=== PATIENT | female | born 1965 | race Caucasian/White ===

== ENCOUNTER 2016-06-28 13:41 | Emergency (ER) | payer MEDICARE, OTHER ==
[2016-06-28] MEDS ORDERED: Fentanyl 100 MCG/2 ML VIAL ONE (15:11)
[2016-06-28 15:20] LABS: #Basophils 0.1 thou/uL (0.0-0.2); #Eosinphils 0.1 thou/uL (0.0-0.7); #Lymphocytes 3.8 thou/uL (1.20-3.40); #Monocytes 0.7 thou/uL (0.11-0.59); #Neutrophils 7.2 thou/uL (1.40-6.50); %Eosinophils 0.9 % (0.0-10.0); %Lymphocytes 31.9 % (21.0-51.0); %Monocytes 6.2 % (0.0-10.0); %Neutrophils 60.1 % (42.0-75.0); Hemoglobin 16.1 g/dL (12.0-16.0); Mean Corpuscular HGB CONC 35.4 g/dL (32.0-36.0); Mean Corpuscular Hemoglobin 32.5 pg (27.0-31.0); Mean Corpuscular Volume 91.9 fl (81.0-99.0); Mean Platelet Volume 7.8 fL (7.4-10.4); Platelet Count 217 thou/uL (130-400); RBC Distribution Width 11.9 % (11.5-14.5); Red Blood Cell (RBC) Count 4.94 mill/uL (4.20-5.40); White Blood Cell (WBC) Count 11.9 thou/uL (4.8-10.8)
[2016-06-28 15:38] LABS: ALT (SGPT) 21 U/L (0-55); AST (SGOT) 14 U/L (5-34); Albumin 4.1 g/dL (3.5-5.0); Alkaline Phosphatase 87 U/L (40-150); Anion Gap 15 mmol/L (10-20); BUN (Urea Nitrogen) 8 mg/dL (7.0-18.7); Bilirubin, Total 0.5 mg/dL (0.2-1.2); CK (CPK) 106 U/L (29-168); Calc. Creatinine Clearance 0 mL/min (70-130); Calcium 9.4 mg/dL (7.8-10.44); Carbon Dioxide 31 mmol/L (22-29); Chloride 98 mmol/L (98-107); Estimated GFR-MDRD 57; Globulin 3.2 g/dL (2.4-3.5); Lipase 63 U/L (8-78); Protein, Total 7.3 g/dL (6.0-8.3); Sodium 141 mmol/L (136-145)
[2016-06-28 15:39] LABS: CKMB 1.2 ng/mL (0-6.6); Troponin I Less than 0.010 ng/mL (< 0.028)
[2016-06-28 15:42] LABS: Glucose 51 mg/dL (70-105)
[2016-06-28] MEDS ORDERED: Ondansetron HCl/PF 4 MG/2 ML Vial ONE (16:18)
--- NOTE | 2016-06-28 16:46 | ULT ---
ULTRASOUND RIGHT UPPER QUADRANT GALLBLADDER 06/28/16 HISTORY: Evaluate for stone or infection. History of right upper quadrant pain for one week. COMPARISON: Ultrasound gallbladder 10/04/14. FINDINGS: There is underlying increased diffuse hepatic echotexture. Liver measures 17 cm in length. Right kidney measures 10.8 x 4.9 x 5.2 cm without hydronephrosis or calcification. Gallbladder is no rmal. No pericholecystic fluid. The common bile duct measures less than 4 mm, normal. The pancreas i s not well visualized. IMPRESSION: Diffuse hepatic steatosis. No cholelithiasis or evidence of cholecystitis. POS: [facility]
== END 2016-06-28 17:46 | disposition home or self-care (01) ==
LOC: NAV ERS 13:41
DX: R10.13 Epigastric pain (principal); E11.9 Type 2 diabetes mellitus without complications; I10 Essential (primary) hypertension; J44.9 Chronic obstructive pulmonary disease, unspecified; F17.210 Nicotine dependence, cigarettes, uncomplicated; Z79.84 Long term (current) use of oral hypoglycemic drugs; Z79.899 Other long term (current) drug therapy
CPT/HCPCS: 36416; 76705; 80053; 82553; 83690; 84484; 85025; J2405; J3010

== ENCOUNTER 2016-08-09 11:41 | Outpatient (CLI) | payer OTHER ==
[2016-08-09 13:00] LABS: Anion Gap 17 mmol/L (10-20); BUN (Urea Nitrogen) 10 mg/dL (7.0-18.7); Calc. Creatinine Clearance 0 mL/min (70-130); Calcium 9.8 mg/dL (7.8-10.44); Carbon Dioxide 33 mmol/L (22-29); Chloride 96 mmol/L (98-107); Estimated GFR-MDRD 54; Glucose 223 mg/dL (70-105); Potassium 3.5 mmol/L (3.5-5.1); Sodium 142 mmol/L (136-145)
== END 2016-08-09 11:42 ==
LOC: NAVSJIPCSP 11:41
PROVIDERS: ATTEND Internal Medicine
DX: I10 Essential (primary) hypertension (principal)
CPT/HCPCS: 36415; 80048

== ENCOUNTER 2017-03-31 19:47 | Emergency (ER) | payer MEDICARE, BC ==
[2017-03-31] MEDS ORDERED: Azithromycin 250 MG TAB ONE (21:12)
[2017-03-31] MEDS ORDERED: predniSONE 20 MG TAB ONE (21:12)
--- NOTE | 2017-03-31 22:48 | RAD ---
CHEST TWO VIEWS: History: Emergency exam. Comparison: 2014 FINDINGS: Lungs are clear. No pneumothorax or effusion. Cardiac silhouette and mediastinal contours are within normal limits. IMPRESSION: No acute intrathoracic abnormality. POS: [facility]
== END 2017-03-31 21:30 | disposition home or self-care (01) ==
LOC: NAV ERS 19:47
DX: J20.9 Acute bronchitis, unspecified (principal); E11.9 Type 2 diabetes mellitus without complications; I10 Essential (primary) hypertension; J44.9 Chronic obstructive pulmonary disease, unspecified; F17.210 Nicotine dependence, cigarettes, uncomplicated; Z79.84 Long term (current) use of oral hypoglycemic drugs; Z79.899 Other long term (current) drug therapy
CPT/HCPCS: 71046; 93005; J7506

== ENCOUNTER 2017-06-26 21:58 | Emergency (ER) | payer BC, MEDICARE ==
[2017-06-26] MEDS ORDERED: Fentanyl 100 MCG/2 ML VIAL ONE (23:06)
--- NOTE | 2017-06-27 00:26 | CT ---
LUMBAR SPINE MRI WITHOUT IV CONTRAST: 06/26/17 HISTORY: 52-year-old female with right hip pain and back pain. No evidence for acute fracture or dislocation. The L1-L2, L2-L3, and L3-L4 discs demonstrate some min imal ligament and facet hypertrophic changes without significant canal or foraminal stenosis. At L4-L5, there is some diffuse disc bulging with moderate central canal and lateral recess and drew inal stenosis. Mild disc bulging at L5-S1 without significant central canal or lateral recess stenosi s. Mild bilateral foraminal stenosis. IMPRESSION: Disc protrusion changes at L4-L5 with some associated canal, lateral recess, and foraminal stenosis. Mild lateral recess stenosis at L5-S1. No fracture or dislocation. Consider nonemergent followup MRI study for further assessment. POS: [facility]
== END 2017-06-26 23:50 | disposition home or self-care (01) ==
LOC: NAV ERS 21:58
DX: M51.16 Intervertebral disc disorders with radiculopathy, lumbar region (principal); E11.9 Type 2 diabetes mellitus without complications; I10 Essential (primary) hypertension; J44.9 Chronic obstructive pulmonary disease, unspecified; F17.210 Nicotine dependence, cigarettes, uncomplicated; Z79.899 Other long term (current) drug therapy
CPT/HCPCS: 72131; 96372; J3010

== ENCOUNTER 2018-06-26 16:54 | Outpatient (CLI) | payer BC, MEDICARE ==
--- NOTE | 2018-06-26 17:21 | RAD ---
F4 views left knee: 06/26/2018 COMPARISON: None HISTORY: Osteoarthritis FINDINGS: Mild/moderate medial and lateral compartment narrowing with medial osteophyte formation and lateral compartment chondrocalcinosis. No significant knee joint effusion. No displaced fracture or dislocation. Patellofemoral joint space narrowing with posterior patellar osteophyte formation noted. Enthesophyte formation noted at the insertion of the quadriceps tendon. IMPRESSION: Degenerative joint disease.
== END 2018-06-26 16:55 | disposition home or self-care (01) ==
LOC: NAV RAD 16:54
PROVIDERS: ATTEND Internal Medicine
DX: M17.12 Unilateral primary osteoarthritis, left knee (principal)

== ENCOUNTER 2018-06-28 14:23 | Emergency (ER) | payer BC, MEDICARE ==
[2018-06-28] MEDS ORDERED: Ondansetron ODT 4 MG TAB ONE (15:09)
== END 2018-06-28 16:10 | disposition home or self-care (01) ==
LOC: NAV ERS 14:23
DX: M17.12 Unilateral primary osteoarthritis, left knee (principal); I10 Essential (primary) hypertension; E11.9 Type 2 diabetes mellitus without complications; J44.9 Chronic obstructive pulmonary disease, unspecified; F17.210 Nicotine dependence, cigarettes, uncomplicated; Z79.899 Other long term (current) drug therapy
CPT/HCPCS: 96372; J1170; Q0162

== ENCOUNTER 2018-07-01 12:56 | Emergency (ER) | payer BC, MEDICARE ==
[2018-07-01] MEDS ORDERED: Ketorolac Tromethamine 60 MG/2 ML VIAL ONE (13:41)
[2018-07-01] MEDS ORDERED: traMADol HCl 50 MG TAB ONE (13:41)
[2018-07-01] MEDS ORDERED: Ketorolac Tromethamine 30 MG/ML VIAL IM SCH (13:45)
[2018-07-01] MEDS ORDERED: traMADol HCl 50 MG TAB PO SCH (13:45)
== END 2018-07-01 14:00 | disposition home or self-care (01) ==
LOC: NAV ERS 12:56
DX: M17.12 Unilateral primary osteoarthritis, left knee (principal); E11.9 Type 2 diabetes mellitus without complications; I10 Essential (primary) hypertension; J44.9 Chronic obstructive pulmonary disease, unspecified; F17.210 Nicotine dependence, cigarettes, uncomplicated; Z79.899 Other long term (current) drug therapy
CPT/HCPCS: 96372; J1885

== ENCOUNTER 2018-08-27 22:17 | Emergency (ER) | payer BC, MEDICARE ==
[~2018-08-27 22:17] MED LIST: Iopamidol 370 76% 100 ML VIAL ONE
[2018-08-27] MEDS ORDERED: Fentanyl 100 MCG/2 ML VIAL ONE (22:42)
[2018-08-27 22:43] LABS: #Basophils 0.1 thou/uL (0.0-0.2); #Eosinphils 0.2 thou/uL (0.0-0.7); #Lymphocytes 3.2 thou/uL (1.20-3.40); #Monocytes 0.5 thou/uL (0.11-0.59); #Neutrophils 5.9 thou/uL (1.40-6.50); %Basophils 0.7 % (0.0-1.0); %Eosinophils 1.9 % (0.0-10.0); %Lymphocytes 32.3 % (21.0-51.0); %Monocytes 4.7 % (0.0-10.0); %Neutrophils 60.5 % (42.0-75.0); Hemoglobin 14.8 g/dL (12.0-16.0); Mean Corpuscular HGB CONC 32.6 g/dL (32.0-36.0); Mean Corpuscular Hemoglobin 31.1 pg (27.0-31.0); Mean Corpuscular Volume 95.6 fL (78.0-98.0); Mean Platelet Volume 8.3 fL (7.4-10.4); Platelet Count 213 thou/uL (130-400); RBC Distribution Width 12.5 % (11.5-14.5); Red Blood Cell (RBC) Count 4.76 mill/uL (4.20-5.40); White Blood Cell (WBC) Count 9.8 thou/uL (4.8-10.8)
[2018-08-27 22:57] LABS: ALT (SGPT) 22 U/L (8-55); AST (SGOT) 22 U/L (5-34); Albumin 4.4 g/dL (3.5-5.0); Alkaline Phosphatase 91 U/L (40-150); Anion Gap 17 mmol/L (10-20); BUN (Urea Nitrogen) 9 mg/dL (9.8-20.1); Bilirubin, Total 0.3 mg/dL (0.2-1.2); Calc. Creatinine Clearance 0 mL/min (70-130); Calcium 9.8 mg/dL (7.8-10.44); Carbon Dioxide 25 mmol/L (22-29); Chloride 103 mmol/L (98-107); Estimated GFR-MDRD 60; Globulin 3.1 g/dL (2.4-3.5); Glucose 135 mg/dL (70-105); Potassium 3.4 mmol/L (3.5-5.1); Protein, Total 7.5 g/dL (6.0-8.3); Sodium 142 mmol/L (136-145)
--- NOTE | 2018-08-28 00:07 | CT ---
EXAM: CT angiogram of the chest, abdomen, and pelvis with IV contrast and 3-D reconstructions: HISTORY: Chest and back pain. Patient states pain feels like a knife is between shoulder blades. Radiation of pain to jaw and right side of back. COMPARISON: CTA chest on 03/15/2016. FINDINGS: CTA THORAX: Thoracic aorta: Normal in caliber without evidence of an aortic dissection. Pulmonary arteries: No filling defects are seen in the pulmonary arteries to suggest a pulmonary embo len. Lungs: There is dependent atelectasis bilaterally. The lungs are otherwise clear without pulmonary no dule, mass, or pleural effusion. Lymph nodes: No lymphadenopathy. Thyroid gland: There is a isodense nodule seen within the left lobe of the thyroid gland incompletely imaged with a small hypodense nodule seen near the thyroid isthmus the left lobe of thyroid gland measuring 5 mm. Mediastinal structures otherwise have a normal appearance. Chest wall: No abnormalities CTA ABDOMEN AND PELVIS: Vessels: There are mild atherosclerotic calcifications and plaque seen in the abdominal aorta and inv olving the iliac arteries. There is no evidence of an aortic dissection. There is mild atherosclerotic irregularity involving the most proximal right common iliac artery with at least mild narrowing present. The iliac and visualized femoral arteries appear patent bilaterally. Single patent bilateral renal arteries are seen. The celiac, superior mesenteric, and inferior mesent rita arteries are patent. Liver: Within normal limits. Gallbladder: Decompressed.\ Pancreas: Within normal limits. Spleen:Within normal limits for arterial phase of imaging. Adrenal glands: Within normal limits. Kidneys: Subcentimeter too small to characterize hypodense lesions noted in each kidney. There is a l obulated appearance of each kidney which may be related to lobulation. Urinary Bladder: The urinary bladder is unremarkable. Reproductive organs: There is evidence of hysterectomy. Bowel: Normal in caliber. The appendix is visualized and normal in caliber. Adenopathy:No lymphadenopathy within the abdomen or pelvis. Peritoneum: No free fluid or fluid collection is seen. No free intraperitoneal gas is identified. Abdominal wall: There is a fat-containing umbilical hernia present. Osseous structures: Mild degenerative changes are seen in the spine. Mild osteoarthritis is seen invo lving the bilateral hips. IMPRESSION: 1. Mild atherosclerotic plaque within the abdominal aorta and involving the iliac arteries. However, the thoracic and abdominal aorta are normal in caliber without evidence of an aortic dissection. 2. No CT evidence of a pulmonary embolus. 3. Left thyroid nodules. Nonemergent thyroid ultrasound is recommended. 4. Additional findings as described above.
[2018-08-28] MEDS ORDERED: Nitroglycerin 2% Ointment 1 INCH/1 GM Packet ONE (00:24)
[2018-08-28] MEDS ORDERED: Aspirin Chewable 81 MG TAB ONE (00:24)
[2018-08-28] MEDS ORDERED: HYDROcodone/Acetaminophen 10/325 mg Tablet ONE (00:24)
[2018-08-28] MEDS ORDERED: Ondansetron PF 4 MG/2 ML Vial ONE (00:39)
== END 2018-08-28 00:58 | disposition short-term general hospital (02) ==
LOC: NAV ERS 22:17
DX: R07.9 Chest pain, unspecified (principal); G89.29 Other chronic pain; M54.5 Low back pain; I10 Essential (primary) hypertension; E11.9 Type 2 diabetes mellitus without complications; J44.9 Chronic obstructive pulmonary disease, unspecified; F17.210 Nicotine dependence, cigarettes, uncomplicated; Z79.899 Other long term (current) drug therapy
CPT/HCPCS: 71275; 80053; 84484; 85025; 93005; 96374; 96375; J2405; J3010; Q9967

== ENCOUNTER 2019-08-01 12:06 | Emergency (ER) | payer BC, MEDICARE ==
--- NOTE | 2019-08-01 13:13 | RAD ---
EXAM: XR Foot Lt 3 View STANDARD PROVIDED CLINICAL HISTORY: Soft tissue swelling status post stepping on a thorn COMPARISON: None FINDINGS: There is focal soft tissue swelling at the lateral aspect of the proximal forefoot, without focal rad iopaque foreign body seen in this region. Multiple punctate radiodensities overlie the plantar soft tissues of the foot from the calcaneus through the forefoot on the lateral view. Plantar and posterio r calcaneal enthesophyte formation is noted. No evidence for fracture or other acute osseous abnormality. Alignment appears anatomic. IMPRESSION: No evidence for soft tissue foreign body in the region of focal swelling. No evidence for an acute os seous abnormality.
== END 2019-08-01 13:25 | disposition home or self-care (01) ==
LOC: NAV ERS 12:06
DX: S91.332A Puncture wound without foreign body, left foot, initial encounter (principal); M67.472 Ganglion, left ankle and foot; E11.9 Type 2 diabetes mellitus without complications; I10 Essential (primary) hypertension; J44.9 Chronic obstructive pulmonary disease, unspecified; F17.210 Nicotine dependence, cigarettes, uncomplicated; Z79.899 Other long term (current) drug therapy; W60.XXXA Contact with nonvenomous plant thorns and spines and sharp leaves, initial encounter

== ENCOUNTER 2019-10-19 15:28 | Emergency (ER) | payer MEDICARE ==
[2019-10-19] MEDS ORDERED: Acetaminophen 500 MG TAB ONE (15:54)
== END 2019-10-19 16:34 | disposition home or self-care (01) ==
LOC: NAV ERS 15:28
DX: S80.12XA Contusion of left lower leg, initial encounter (principal); S90.32XA Contusion of left foot, initial encounter; Z71.6 Tobacco abuse counseling; E11.9 Type 2 diabetes mellitus without complications; F17.210 Nicotine dependence, cigarettes, uncomplicated; W20.8XXA Other cause of strike by thrown, projected or falling object, initial encounter
CPT/HCPCS: 99406

== ENCOUNTER 2021-10-28 12:20 | Emergency (ER) | payer MEDICARE ==
[2021-10-28] MEDS ORDERED: Acetaminophen 500 MG TAB ONE (12:45)
[2021-10-28] MEDS ORDERED: Ketorolac Tromethamine 30 MG/ML VIAL ONE (12:45)
[2021-10-28] MEDS ORDERED: Sodium Chloride 0.9% 1,000 ML ONE (12:45)
[2021-10-28] MEDS ORDERED: Ondansetron PF 4 MG/2 ML Vial ONE ×2 (12:45→14:59)
[2021-10-28 12:52] LABS: #Lymphocytes 0.9 thou/uL (1.20-3.40); #Monocytes 0.4 thou/uL (0.11-0.59); #Neutrophils 6.1 thou/uL (1.40-6.50); %Basophils 0.6 % (0.0-1.0); %Eosinophils 0.4 % (0.0-10.0); %Lymphocytes 11.6 % (21.0-51.0); %Neutrophils 81.4 % (42.0-75.0); Hemoglobin 9.9 g/dL (12.0-16.0); Mean Corpuscular HGB CONC 32.3 g/dL (32.0-36.0); Mean Corpuscular Hemoglobin 30.5 pg (27.0-31.0); Mean Corpuscular Volume 94.3 fL (78.0-98.0); Mean Platelet Volume 9.6 fL (7.4-10.4); Platelet Count 171 thou/uL (130-400); Red Blood Cell (RBC) Count 3.24 mill/uL (4.20-5.40); White Blood Cell (WBC) Count 7.5 thou/uL (4.8-10.8)
[2021-10-28 13:07] LABS: ALT (SGPT) 21 U/L (8-55); AST (SGOT) 71 U/L (5-34); Albumin 3.2 g/dL (3.5-5.0); Alkaline Phosphatase 95 U/L (40-110); Anion Gap 24 mmol/L (10-20); BUN (Urea Nitrogen) 29 mg/dL (9.8-20.1); Bilirubin, Total 1.2 mg/dL (0.2-1.2); CK (CPK) 819 U/L (29-168); Calc. Creatinine Clearance 0 mL/min (70-130); Carbon Dioxide 27 mmol/L (22-29); Chloride 86 mmol/L (98-107); Estimated GFR 21; Globulin 3.5 g/dL (2.4-3.5); Glucose 151 mg/dL (70-105); Protein, Total 6.7 g/dL (6.0-8.3); Sodium 135 mmol/L (136-145)
[2021-10-28 13:09] LABS: Potassium 2.3 mmol/L (3.5-5.1)
[2021-10-28] MEDS ORDERED: Potassium Chloride 20 MEQ TAB ONE ×2 (13:26→16:15)
[2021-10-28 13:52] LABS: SARS-CoV-2 NAA Rapid Test Not Detected (NotDetected)
[2021-10-28 15:18] LABS: Bilirubin Negative (Negative); Blood, Urine Small (Negative); Clarity Cloudy (Clear); Glucose, Urine (Dipstick) Negative (Negative); Ketone, Urine Negative (Negative); Leukocyte Small (Negative); Nitrite Negative (Negative); Protein, Urine (Dipstick) 30 mg/dL (Neg-Trace); Specific Gravity, Urine 1.015 (1.005-1.030); pH, Urine 5.5 (5.0-9.0)
[2021-10-28 15:19] LABS: Bacteria/HPF 3+ HPF (None Seen); WBC/HPF Greater Than 50 HPF (0-3)
[2021-10-28] MEDS ORDERED: Cefepime 2 GM VIAL ONE (15:37)
[2021-10-28] MEDS ORDERED: Sodium Chloride 0.9% 100 ML ONE (15:38)
[2021-10-28 15:42] LABS: Lactic Acid 1.8 mmol/L (0.5-2.2)
[2021-10-28 15:45] LABS: Anion Gap 17 mmol/L (10-20)
[2021-10-28 15:55] LABS: BUN (Urea Nitrogen) 26 mg/dL (9.8-20.1); Calc. Creatinine Clearance 0 mL/min (70-130); Calcium 5.7 mg/dL (7.8-10.44); Carbon Dioxide 24 mmol/L (22-29); Chloride 94 mmol/L (98-107); Estimated GFR 24; Glucose 107 mg/dL (70-105); Potassium 2.1 mmol/L (3.5-5.1); Sodium 133 mmol/L (136-145)
== END 2021-10-28 16:50 | disposition short-term general hospital (02) ==
LOC: NAV ERS 12:20
DX: A41.9 Sepsis, unspecified organism (principal); K52.9 Noninfective gastroenteritis and colitis, unspecified; E87.6 Hypokalemia; N28.9 Disorder of kidney and ureter, unspecified; N39.0 Urinary tract infection, site not specified; Z20.822 Contact with and (suspected) exposure to COVID-19; E11.9 Type 2 diabetes mellitus without complications; I10 Essential (primary) hypertension; J44.9 Chronic obstructive pulmonary disease, unspecified; F17.210 Nicotine dependence, cigarettes, uncomplicated
CPT/HCPCS: 36415; 51702; 71045; 80053; 81003; 81015; 82550; 83605; 83880; 84484; 85025; 87040; 87077; 87086; 87186; 87804; 93005; 94760; 96361; 96365; 96375; 96376; J0692; J1885; J2405; J3490; J7050

== ENCOUNTER 2021-11-18 12:40 | Emergency (ER) | payer MEDICARE ==
[2021-11-18] MEDS ORDERED: Sodium Chloride 0.9% 1,000 ML ONE ×2 (13:07→13:53)
[2021-11-18] MEDS ORDERED: Ondansetron PF 4 MG/2 ML Vial ONE (13:12)
[2021-11-18 13:25] LABS: #Basophils 0.1 thou/uL (0.0-0.2); #Eosinphils 0.1 thou/uL (0.0-0.7); #Lymphocytes 1.9 thou/uL (1.20-3.40); #Monocytes 0.4 thou/uL (0.11-0.59); #Neutrophils 5.4 thou/uL (1.40-6.50); %Basophils 0.8 % (0.0-1.0); %Eosinophils 1.1 % (0.0-10.0); %Monocytes 5.1 % (0.0-10.0); Hemoglobin 10.4 g/dL (12.0-16.0); Mean Corpuscular HGB CONC 31.9 g/dL (32.0-36.0); Mean Corpuscular Hemoglobin 31.8 pg (27.0-31.0); Mean Corpuscular Volume 99.6 fL (78.0-98.0); Mean Platelet Volume 6.9 fL (7.4-10.4); Platelet Count 232 thou/uL (130-400); RBC Distribution Width 16.5 % (11.5-14.5); Red Blood Cell (RBC) Count 3.28 mill/uL (4.20-5.40); White Blood Cell (WBC) Count 7.9 thou/uL (4.8-10.8)
[2021-11-18 13:30] LABS: Lactic Acid 1.6 mmol/L (0.5-2.2)
[2021-11-18 13:39] LABS: ALT (SGPT) 25 U/L (8-55); AST (SGOT) 46 U/L (5-34); Albumin 3.5 g/dL (3.5-5.0); Alkaline Phosphatase 130 U/L (40-110); Anion Gap 20 mmol/L (10-20); BUN (Urea Nitrogen) 11 mg/dL (9.8-20.1); Bilirubin, Total 0.8 mg/dL (0.2-1.2); Calc. Creatinine Clearance 0 mL/min (70-130); Calcium 7.8 mg/dL (7.8-10.44); Carbon Dioxide 21 mmol/L (22-29); Chloride 102 mmol/L (98-107); Estimated GFR 63; Globulin 3.1 g/dL (2.4-3.5); Glucose 105 mg/dL (70-105); Lipase 27 U/L (8-78); Potassium 3.3 mmol/L (3.5-5.1); Protein, Total 6.6 g/dL (6.0-8.3); Sodium 140 mmol/L (136-145)
[2021-11-18 13:41] LABS: Magnesium 0.8 mg/dL (1.6-2.6)
[2021-11-18 13:52] LABS: INR-International Normal Ratio 1.1; Prothrombin Time 14.1 sec (12.0-14.7)
[2021-11-18 13:53] LABS: PTT 31.5 sec (22.9-36.1)
[2021-11-18] MEDS ORDERED: Aspirin Chewable 81 MG TAB ONE (13:53)
[2021-11-18] MEDS ORDERED: Magnesium 2 GM/50 ML BAG (IN WATER) ONE (13:53)
[2021-11-18] MEDS ORDERED: Piperacillin/Tazobactam 4.5 GM VIAL ONE (13:53)
[2021-11-18] MEDS ORDERED: Sodium Chloride 0.9% 100 ML ONE (13:54)
[2021-11-18 13:55] LABS: D-Dimer Test 2.93 *mcg/mL (0.27-0.43)
[2021-11-18 13:58] LABS: CKMB 2.2 ng/mL (0-6.6)
[2021-11-18] MEDS ORDERED: Sodium Chloride 0.9% 250 ML 500 ML ONE (15:10)
[2021-11-18 16:19] LABS: SARS-CoV-2 NAA Rapid Test Not Detected (NotDetected)
[2021-11-18 16:23] LABS: Troponin I 0.104 ng/mL (< 0.028)
[2021-11-18 16:50] LABS: Bilirubin Negative (Negative); Blood, Urine Negative (Negative); Clarity Clear (Clear); Glucose, Urine (Dipstick) Negative (Negative); Ketone, Urine Negative (Negative); Leukocyte Negative (Negative); Nitrite Negative (Negative); Protein, Urine (Dipstick) Negative (Neg-Trace)
== END 2021-11-18 16:54 | disposition short-term general hospital (02) ==
LOC: NAV ERS 12:40
DX: E86.0 Dehydration (principal); R19.7 Diarrhea, unspecified; R77.8 Other specified abnormalities of plasma proteins; Z20.822 Contact with and (suspected) exposure to COVID-19; F17.210 Nicotine dependence, cigarettes, uncomplicated; E11.9 Type 2 diabetes mellitus without complications; J44.9 Chronic obstructive pulmonary disease, unspecified; Z79.899 Other long term (current) drug therapy
CPT/HCPCS: 71045; 71275; 74177; 80053; 81003; 82553; 83605; 83690; 83735; 83880; 84484; 85025; 85379; 85610; 85730; 87040; 87086; 87324; 87449; 93005; 94760; 96361; 96365; 96366; 96367; 96375; J2405; J2543; J3370; J3475; J3490; J7050; Q9967; U0002